=== PATIENT | female | born 1970 | race Caucasian/White ===

== ENCOUNTER → 2016-09-10 | Outpatient (REF) | payer BC, MEDICARE ==
[2016-09-10 18:43] LABS: PERCENT SATURATION 24.3 % (13.2-37.4)
[2016-09-11 11:22] LABS: PRETREATED FOLATE FOR RBCFOL 12.4 NG/ML
== END ==
LOC: M LAB REF 16:27
PROVIDERS: ATTEND Nurse Practitioner Adult Health
DX: Z98.84 Bariatric surgery status (principal)

== ENCOUNTER → 2016-10-28 | Outpatient (REF) | payer BC, MEDICARE ==
[2016-10-28 18:13] LABS: AMYLASE 33 U/L (25-115)
== END ==
LOC: M LAB REF 16:28
PROVIDERS: ATTEND Nurse Practitioner Adult Health
DX: R10.9 Unspecified abdominal pain (principal)

== ENCOUNTER → 2016-10-29 | Outpatient (REF) | payer BC, MEDICARE | LOC: M LAB REF 13:00 | PROVIDERS: ATTEND Nurse Practitioner Adult Health | DX: R10.9 Unspecified abdominal pain (principal) ==

== ENCOUNTER 2016-11-21 21:58 | Observation (INO) | payer BC, MEDICARE ==
[~2016-11-21] VITALS: Ht 167.6 cm; Wt 131.1 kg
[2016-11-21] MEDS: busPIRone 10 MG TAB PO SCH (21:00)
[2016-11-21] MEDS: DYAZIDE 37.5/25 CAP (TRIAM/HCTZ) PO SCH (21:00)
[2016-11-21] MEDS: MULTIVITAMINS/MINERALS THERAP 1 TAB PO SCH (21:00)
[2016-11-21] MEDS: SERTRALINE 100 MG TAB PO SCH (21:00)
[2016-11-21] MEDS: FERROUS SULFATE 325MG TAB PO SCH (21:00)
[2016-11-21] MEDS ORDERED: OMEP20CA3 PO (22:13)
[2016-11-21] MEDS ORDERED: LEVO200T4 PO (22:13)
[2016-11-21] MEDS ORDERED: BUSP30TA PO (22:13)
[2016-11-21] MEDS ORDERED: MONOESSA PO (22:13)
[2016-11-21] MEDS ORDERED: MULT1TAB10 PO (22:13)
[2016-11-21] MEDS ORDERED: TRIA37.53 PO (22:13)
[2016-11-21] MEDS ORDERED: VYVA70CA3 PO (22:13)
[2016-11-21] MEDS ORDERED: ZOLO100T PO (22:13)
[2016-11-21] MEDS ORDERED: IRON1TAB PO (22:13)
[2016-11-21] MEDS: MORPHINE 4 MG/ML 1ML SYRINGE IV PRN (22:57)
[2016-11-21] MEDS ORDERED: ONDANSETRON 4MG/2ML VIAL (J2405) IV ONE (23:00)
[2016-11-21] MEDS ORDERED: NS 1,000 ML IV ONE (23:00)
[2016-11-22] MEDS: MORPHINE 4 MG/ML 1ML SYRINGE IV PRN (00:15)
--- NOTE | 2016-11-22 00:40 | REPUSA ---
CT of the abdomen and pelvis without contrast Clinical statement: Pain. Technique: Multiple axial CT images were obtained from the base of the lungs to the floor of the pelv is utilizing 5 mm axial slices without administration of contrast. Coronal and sagittal reconstructio ns were also obtained. No comparison is available. Findings: Chest: The visualized lung bases are clear. Abdomen: The kidneys are normal in size bilaterally. There is no evidence of hydronephrosis or nephro lithiasis. The liver, spleen, pancreas, gallbladder and adrenal glands are unremarkable. The aorta de monstrates normal caliber and contour. There is no abdominal lymphadenopathy or ascites. Surgical bronwyn nges from gastric bypass are noted. There is a small umbilical hernia containing only omental fat. Pelvis: The bowel is unremarkable, with no obstructive or inflammatory changes. The urinary bladder i s within normal limits. There is no pelvic lymphadenopathy or ascites. The other pelvic structures ap pear unremarkable. Bones: There are no suspicious osseous abnormalities seen. Impression: 1. No focal abnormality to explain the patient's pain. 2. No evidence of hydronephrosis or nephrolithiasis. 3. No obstructive or inflammatory bowel changes. 4. Small umbilical hernia containing only omental fat.
[2016-11-22] MEDS ORDERED: DICYCLOMINE INJ 20MG/2ML (J0500) IM ONE (01:15)
[2016-11-22] MEDS ORDERED: ACETAMINOPHEN TAB 650MG DOSE (2X325MG) PO PRN (04:00)
[2016-11-22] MEDS ORDERED: VYVA50CA PO (04:04)
[2016-11-22] MEDS ORDERED: MONOTAB PO (04:04)
[2016-11-22] MEDS ORDERED: IRON65TA PO (04:06)
[2016-11-22] MEDS ORDERED: PERCOCET 5MG/325MG TAB PO PRN (04:15)
[2016-11-22 06:00] VITALS: BP 152/80
[2016-11-22] MEDS: HEPARIN SOD (PORCINE) 5000 UNITS/ML VIAL SC SCH ×3 (06:00→21:45)
[2016-11-22] MEDS: LEVOTHYROXINE 0.1 MG TAB (100 MCG) PO SCH (06:30)
--- NOTE | 2016-11-22 06:59 | HPE ---
DATE OF ADMISSION: 11/22/2016 PRIMARY CARE PROVIDER: Jennifer Ferreira NP PSYCHIATRIST: Dr. Clark in [place]. CHIEF COMPLAINT: Left upper abdominal pain. HISTORY OF PRESENT ILLNESS: The patient is a 46-year-old female with a past medical history significant for panic attacks, anxiety/depression, hypertension, morbid obesity, who presented to [facility] on 11/22/2016 for persistent left upper abdominal pain. The patient stated that around 3:00 p.m. on 11/21/2016, she was carrying groceries home and in the process she started having sharp, throbbing left upper abdominal pain and the patient radiated to the back and the right side of the upper abdomen. position makes the pain better, standing or upper body extension makes it worse. Other significant history includes the patient having increased fatigue and the patient was noted to have two days of diarrhea which resolved approximately three days. The patient had almost exactly the same episode approximately a few weeks ago and the pain subsided within a few days without any intervention. Before the last episode, the patient had infrequent upper abdominal pain, but that pain resolved after the patient's gastric bypass surgery. The patient denies any recent dietary changes. Denies any new medication changes. Denies any recent trauma. Patient any exertion more than usual. ALLERGIES: No known drug allergies. PAST MEDICAL HISTORY: Panic attacks. Anxiety/depression. Hypothyroidism. Morbid obesity. PAST SURGICAL HISTORY: Gastric bypass three years ago. Uterine ablation for excessive blood loss. Knee surgery times two for meniscus tear. Right knee surgery times one. Right ankle surgery times one. Right shoulder surgery times one. Right hand carpal tunnel surgery times two. HOME MEDICATIONS: - BuSpar 30 mg by mouth at bedtime - triamterene/hydrochlorothiazide 37.5/25 one tablet by mouth at bedtime - iron 325 mg by mouth at bedtime - levothyroxine 200 mcg by mouth daily - Mononessa 0.25-35 mcg one tablet by mouth daily - sertraline 100 mg by mouth at bedtime - Vyvanse 15 mg by mouth daily SOCIAL HISTORY: Denies smoking. Drinks mixed drinks occasionally. Denies recreational drug use. The patient is a FULL CODE. REVIEW OF SYSTEMS: GENERAL: No fever. No chills. HEENT: No vision changes. No auditory changes. CARDIOVASCULAR: Denies any chest pain or palpitations. RESPIRATORY: Denies any shortness of breath or wheezes. GASTROINTESTINAL (GI): Left upper abdominal pain, sharp, persistent, radiates to the posterior back and right upper abdomen. Started 12 hours ago. The patient dd have two days of diarrhea which resolved four days ago. 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 Her elbow and the left did not grow as proportionately as the rest of the body. NEUROLOGICAL: Denies any numbness or tingling. OBJECTIVE: VITAL SIGNS: Temperature 95.9, pulse is 70, blood pressure 124/59, pulse oximetry 98% in room air. GENERAL: Mild to moderate distress secondary to left upper abdominal pain. The patient is alert and oriented times three. HEENT: Normocephalic, atraumatic. Extraocular motors grossly intact. CARDIOVASCULAR: Positive systolic murmur best heard at the sternal borders. Positive S1 and S2, regular rate. LUNGS: Clear to auscultation bilaterally. No wheezes or rhonchi. ABDOMEN: Vague tenderness to palpation just below the left frontal rib. With palpation, the pain will radiate to the posterior back. Otherwise, the abdomen is soft and bowel sounds are present. No rebound. No guarding. MUSCULOSKELETAL: There is point tenderness in her left posterior back, right near the left lower rib region. With direct pressure the tenderness can be reproduced with radiation to the left frontal rib. No lower extremity edema. No signs of cyanosis. NEUROLOGICAL: Sensation to fine touch grossly intact. Muscle strength 5/5. IMAGING STUDIES: CT of the abdomen and pelvis without contrast showed no focal abnormalities. No evidence of hydronephrosis or nephrolithiasis. No obstructive inflammatory bowel changes. Small umbilical hernia containing only omental fat. ASSESSMENT/PLAN: 1. Left upper abdominal pain. The patient will be admitted to the medical/surgical floor under inpatient status. CT scan of the abdomen and pelvis ruled out any abnormality of her spleen, colon or the kidneys. The patient's pain is actually reproducible with direct palpable, which makes the diagnosis lean toward musculoskeletal pain. The patient states she does tend to carry heavy material toward her left side, but she is not sure if that causes significant muscle strains or stress to her body. The patient is not on pain medication currently, will start a trial of muscle relaxant. Will look for other possible sources of her left upper abdominal pain. 2. Hypertension. Continue home medications. 3. History of gastric bypass. The patient is taking iron supplements. We will check the electrolytes. 4. Anxiety/depression. Continue Zoloft. 5. History of panic attacks. Continue home medications. Will continue to monitor. 6. Gastroesophageal reflux disease (GERD). Patient will be on Protonix. 7. Deep vein thrombosis (DVT) prophylaxis. The patient will be on heparin.
[2016-11-22] MEDS: PANTOPRAZOLE 40MG TAB (PROTONIX) PO SCH (09:52)
[2016-11-22] MEDS: BACLOFEN 10 MG TAB PO SCH ×3 (09:52→21:46)
--- NOTE | 2016-11-22 09:59 | REP ---
Clinical: Left upper quadrant pain. Technique: Real time banegas scale ultrasound examination using curved array transducer. Findings: The spleen is mildly enlarged, but normal in contour and echogenicity without focal splenic lesion identified. Spleen measures 11.8 x 11.7 x 5.1 cm. The left kidney is normal in reniform shape without hydronephrosis, nephrolithiasis, cystic or mass lesion and measures 12.3 x 5.3 x 5.2 cm. No ascites in the left upper quadrant. Impression: The spleen is minimally enlarged without focal abnormality. Normal left kidney. Signed by Jonathan Webber MD 11/22/2016 09:51 A
[2016-11-22] MEDS: KETOROLAC TROMETHAMINE 10 MG TAB PO PRN ×2 (11:43→21:48)
[2016-11-22 14:00] VITALS: BP 120/65
[2016-11-22] MEDS: SERTRALINE 100 MG TAB PO SCH (21:46)
[2016-11-22] MEDS: FERROUS SULFATE 325MG TAB PO SCH (21:46)
[2016-11-22] MEDS: MULTIVITAMINS/MINERALS THERAP 1 TAB PO SCH (21:46)
[2016-11-22] MEDS: DYAZIDE 37.5/25 CAP (TRIAM/HCTZ) PO SCH (21:46)
[2016-11-22] MEDS: busPIRone 10 MG TAB PO SCH (21:46)
[2016-11-22 22:00] VITALS: BP 120/76
[2016-11-23 06:00] VITALS: BP 138/76
[2016-11-23] MEDS: HEPARIN SOD (PORCINE) 5000 UNITS/ML VIAL SC SCH (06:04)
[2016-11-23] MEDS: LEVOTHYROXINE 0.1 MG TAB (100 MCG) PO SCH (06:05)
[2016-11-23] MEDS ORDERED: KETO10TAB PO (08:39)
[2016-11-23] MEDS: PANTOPRAZOLE 40MG TAB (PROTONIX) PO SCH (09:32)
[2016-11-23] MEDS: BACLOFEN 10 MG TAB PO SCH (09:32)
--- NOTE | 2016-11-23 09:43 | IPNPDOC ---
Subjective Date Seen The patient was seen on 11/23/16. Subjective Chief Complaint/HPI The patient is a 46-year-old female admitted with a reason for visit of Left Upper Quad Abd Tenderness. General: Denies: Chills, Fatigue, Malaise Constitutional: Denies: Chills, Lethargy, Night Sweats Eyes: Denies: Conjunctivae inflammation, Eyelid inflammation, Pain, Vision change ENT: Denies: Head Aches Skin: Denies: Bruising, Rash Pulmonary: Denies: Cough, Dyspnea Cardiovascular: Reports: Chest Pain (pt states the CP is a 2 on a scale of 1 to 10, describes achy pain under left 10th rib ) Gastrointestinal: Denies: Constipation, Diarrhea, Nausea, Vomiting Genitourinary: Denies: Dysuria Musculoskeletal: Denies: Neck Pain Neurological: Denies: Numbness, Weakness Psych: Reports: Mood Normal, Denies: Anxiety, Depression Objective Physical Examination General Exam: Positive: Alert, Cooperative, No Acute Distress Eye Exam: Positive: Conjunctiva & lids normal, EOMI, Negative: Ptosis, Sclera icteric ENT Exam: Positive: Mucous membr. moist/pink, Nares Patent, Pharynx Normal, Tongue Midline Neck Exam: Positive: Supple Chest Exam: Positive: Clear to auscultation, Normal air movement, Negative: Rales, Rhonchi, Wheezing Heart Exam: Positive: Normal S1, Normal S2, Rate Normal, Regular Rhythm, Negative: Bradycardic, Tachycardic Abdomen Exam: Positive: Normal bowel sounds, Soft, Tenderness (tender to palpitation in LUQ), Negative: Hepatospenomegaly Extremity Exam: Negative: Clubbing, Cyanosis, Edema Skin Exam: Positive: Nl turgor and temperature, Negative: Breakdown, Rash Psych Exam: Positive: Memory Intact, Mental status NL, Negative: Anxiety Assessment /Plan Problems (1) Left upper quadrant abdominal tenderness Status: Acute Problem Text: Abdominal/pelvic CT and abdominal u/s without pathologic findings , minimal amount of splenomegaly likely pain in LUQ is 2/2 msk. origin pt. states her pain is tolerable on current pain medication and is significantly decreased since admission, currently maintained on toradol. (2) Hypothyroid Status: Acute Problem Text: continue levothyroxine treatment (3) Depression Status: Acute Problem Text: pt currently on medical management for depression (4) DVT prophylaxis Status: Acute Problem Text: heparin (5) Hypertension Status: Chronic Response to Treatment: Stable Problem Text: medically managed controlled 138/76 (6) Anxiety Status: Chronic Response to Treatment: Stable Problem Text: will continue current medical therapy controlled (7) Chronic GERD Status: Chronic Response to Treatment: Stable Problem Text: protonix therapy Plan/VTE VTE Prophylaxis Ordered?: No VS, I&O, 24H, Fishbone Vital Signs/I&O Vital Signs Date Time Temp Pulse Resp B/P Pulse Ox O2 Delivery O2 Flow Rate FiO2 11/23/16 06:00 98.8 70 14 138/76 96 Room Air I&O- Last 24 Hours up to 6 AM 11/23/16 06:00 Intake Total 1500 ml Output Total 550 ml Balance 950 ml Laboratory Data 24H LABS Laboratory Tests 2 11/23/16 06:27: Blood Urea Nitrogen 11, Creatinine 0.70, Sodium Level 140, Potassium Level 4.2, Chloride Level 106, Carbon Dioxide Level 26, Calcium Level 8.0L, Aspartate Amino Transf (AST/SGOT) 7L, Alanine Aminotransferase (ALT/SGPT) 13, Alkaline Phosphatase 65, Total Bilirubin 0.4, Total Protein 6.2L, Albumin 2.9L, Albumin/ Globulin Ratio 0.88L, Anion Gap 8, Glomerular Filtration Rate > 60.0 CBC/BMP Laboratory Tests 11/23/16 06:27 Calcium Level 8.0 L, Aspartate Amino Transf (AST/SGOT) 7 L, Alanine Aminotransferase (ALT/SGPT) 13, Alkaline Phosphatase 65, Total Bilirubin 0.4, Total Protein 6.2 L, Albumin 2.9 L, Red Blood Count 3.86 L, Mean Corpuscular Volume 89.6, Mean Corpuscular Hemoglobin 30.2, Mean Corpuscular Hemoglobin Concent 33.7, Red Cell Distribution Width 12.1 Microbiology Microbiology 11/21/16 Urine Culture - Final, Complete GME ATTESTATION GME ATTESTATION My preceptor for this patient encounter was physically present in the building during the encounter and was fully available. As needed, all aspects of the patient interview, examination, medical decision making process, and medical care plan development were reviewed and approved by the preceptor. Preceptor is aware and concurs with the plan as stated in the body of this note and will attest to such by his/her cosignature. MARYELLEN ARZATE DO, Apr 3, 2017 09:42
--- NOTE | 2016-11-23 13:01 | DS.PDOC ---
Discharge Summary General Date of Admission Nov 22, 2016 at 04:02 Date of Discharge 10-23-16 Primary Care Physician: Jennifer Ferreira Discharge Summary PROCEDURES PERFORMED DURING STAY: [None]. ADMITTING DIAGNOSES: 1. Left upper abdominal pain 2. HTN 3. anxiety/depression 4. history of gastric bypass 5. history of panic attacks 6. GERD DISCHARGE DIAGNOSES: 1. Left upper abdominal pain 2/2 musculoskeletal origin due to prosthetic use 2. HTN 3. History of anxiety/depression and panic attacks 4.GERD COMPLICATIONS/CHIEF COMPLAINT: Left Upper Quad Abd Tenderness. HISTORY OF PRESENT ILLNESS: Ms Koch is a 46 y/o female who presented to the ED on 11-21-16 after experiencing acute left upper abdominal pain that had persisted for the preceding two days before admission, she stated that the pain began when she was carrying groceries home and felt an acute, sharp and throbbing left upper abdominal pain that radiated to the back and right side of her upper abdomen. HOSPITAL COURSE: During her hospital stay her pain has been managed and on day of discharge she reports that the left upper abdominal pain is much improved since she initially presented to our ED and states that the toradol is helping her very much. Her abdominal/pelvic CT and abdominal U/S was negative except for minimal splenomegaly and did not suggest a cause for her acute pain. The patient wears a prosthetic device and it is likely that her pain is due from poor position and handling of the device and is musculoskeletal in origin. On day of discharge she was seen and cleared by PT to return home. She was educated on proper use of her prosthetic device to avoid extraneous pressure on her body that may flare up another episode of her pain. DISCHARGE MEDICATIONS: Please see below. ALLERGIES: Please see below. PHYSICAL EXAMINATION ON DISCHARGE: VITAL SIGNS: Please see below. GENERAL: AAOx3, pleasant, sitting upright in bed and conversant HEENT: NCAT, EOMI, neck supple, nares patent b/l NECK: supple, no masses appreciated CARDIOVASCULAR EXAMINATION: RRR, no murmurs or gallops or rubs appreciated, normal s1 and s2. NSR RESPIRATORY EXAMINATION: CTA b/l, no wheezing, rhonchi or rales appreciated ABDOMINAL EXAMINATION: obese, soft, mild minimal pain to palpitation in LUQ much improved from admission as per patient, no organomegaly, NABSx4, non- distended EXTREMITIES: no cyanosis or edema appreciated SKIN: intact, good turgor NEUROLOGICAL EXAMINATION: no focal deficits PSYCHIATRIC EXAMINATION: normal affect, appropriate mood LABORATORY DATA: Please see below. IMAGING: Ab/pelvic CT w/o contrast 11-22-16 Impression: 1. No focal abnormality to explain the patient's pain. 2. No evidence of hydronephrosis or nephrolithiasis. 3. No obstructive or inflammatory bowel changes. 4. Small umbilical hernia containing only omental fat. Abdomen u/s 11-22-16 The spleen is minimally enlarged without focal abnormality. Normal left kidney. PROGNOSIS: Favorable ACTIVITY: As tolerated. DIET: As tolerated DISCHARGE PLAN: to home DISPOSITION: discharge to home DISCHARGE INSTRUCTIONS: 1. follow up outpt. with PCP in one week ITEMS TO FOLLOWUP ON ON OUTPATIENT: 1. Follow with your PCP within one week of DC DISCHARGE CONDITION: [Stable]. TIME SPENT ON DISCHARGE: Greater than 20 minutes. Vital Signs/I&Os Vital Signs Date Time Temp Pulse Resp B/P Pulse Ox O2 Delivery O2 Flow Rate FiO2 11/23/16 06:00 98.8 70 14 138/76 96 Room Air I&O- Last 24 Hours up to 6 AM 11/23/16 06:00 Intake Total 1500 ml Output Total 550 ml Balance 950 ml Laboratory Data Labs 24H Laboratory Tests 2 11/23/16 06:27: Blood Urea Nitrogen 11, Creatinine 0.70, Sodium Level 140, Potassium Level 4.2, Chloride Level 106, Carbon Dioxide Level 26, Calcium Level 8.0L, Aspartate Amino Transf (AST/SGOT) 7L, Alanine Aminotransferase (ALT/SGPT) 13, Alkaline Phosphatase 65, Total Bilirubin 0.4, Total Protein 6.2L, Albumin 2.9L, Albumin/ Globulin Ratio 0.88L, Anion Gap 8, Glomerular Filtration Rate > 60.0 CBC/BMP Laboratory Tests 11/23/16 06:27 Calcium Level 8.0 L, Aspartate Amino Transf (AST/SGOT) 7 L, Alanine Aminotransferase (ALT/SGPT) 13, Alkaline Phosphatase 65, Total Bilirubin 0.4, Total Protein 6.2 L, Albumin 2.9 L, Red Blood Count 3.86 L, Mean Corpuscular Volume 89.6, Mean Corpuscular Hemoglobin 30.2, Mean Corpuscular Hemoglobin Concent 33.7, Red Cell Distribution Width 12.1 Microbiology Microbiology 11/21/16 Urine Culture - Final, Complete Discharge Medications Scheduled (Vyvanse) 50 Mg Cap 50 MG PO DAILY (Reported) @ 1200 (Mononessa 0.25-35 mg-Mcg) 1 Tab Tab 1 TAB PO DAILY (Reported) (Iron) 325 Mg Tab 325 MG PO QHS (Reported) Buspirone HCl (Buspirone HCl) 30 Mg Tab 30 MG PO QHS (Reported) Hydrochlorothiazide W/Triamter (Triamterene/Hydrochloroth 37.5-25 mg) 1 Cap Cap 1 CAP PO QHS (Reported) Levothyroxine Sodium (Synthroid) 200 Mcg Tab 200 MCG PO DAILY (Reported) Multivitamins (Multivitamin Adults) 1 Tab Tab 1 TAB PO QHS (Reported) Omeprazole (Omeprazole) 20 Mg Cap 20 MG PO QHS (Reported) Sertraline Hcl (Zoloft) 100 Mg Tab 100 MG PO QHS (Reported) Scheduled PRN Ketorolac Tromethamine (Ketorolac Tromethamine) 10 Mg Tab 10 MG PO Q6HP PRN PRN PAIN Allergies Coded Allergies: Coconut (Verified Allergy, Unknown, 11/21/16) MINT (Verified Allergy, Unknown, 11/21/16) GME ATTESTATION GME ATTESTATION My preceptor for this patient encounter was physically present in the building during the encounter and was fully available. As needed, all aspects of the patient interview, examination, medical decision making process, and medical care plan development were reviewed and approved by the preceptor. Preceptor is aware and concurs with the plan as stated in the body of this note and will attest to such by his/her cosignature. MARYELLEN ARZATE DO Nov 23, 2016 13:01
== END 2016-11-23 13:15 | disposition home or self-care (01) ==
LOC: M ED 21:58 → M MS5PR 21:59 → M ED 11-22 00:11 → M MS5PR 11-22 03:57 → UNDOADMOB 11-22 03:57 → M ED INP 11-22 04:02 → M ED 11-22 04:50 → M MS5PR 11-22 05:46 → M ED INP 11-22 05:46 → UNDODISOB 11-23 13:15
PROVIDERS: ADMIT Internal Medicine; ATTEND Internal Medicine
DX: R10.12 Left upper quadrant pain (principal); I10 Essential (primary) hypertension; F41.9 Anxiety disorder, unspecified; F32.9 Major depressive disorder, single episode, unspecified; Z98.84 Bariatric surgery status; K21.9 Gastro-esophageal reflux disease without esophagitis; Z79.899 Other long term (current) drug therapy; E66.01 Morbid (severe) obesity due to excess calories; E03.9 Hypothyroidism, unspecified
CPT/HCPCS: 36415; 74176; 76705; 80048; 80053; 80076; 81001; 82550; 82607; 83690; 84439; 84443; 85025; 85027; 86140; 86308; 87086; 93041; 96372; 97161; 99285; J0500; J2405

== ENCOUNTER → 2017-01-28 | Outpatient (CLI) | payer BC, MEDICARE ==
[~2017-01-28] MED LIST: BUSP30TA PO; IRON1TAB PO; IRON65TA PO; KETO10TAB PO; LEVO200T4 PO; MONOESSA PO; MONOTAB PO; MULT1TAB10 PO; OMEP20CA3 PO; TRIA37.53 PO; VYVA50CA PO; VYVA70CA3 PO; ZOLO100T PO
--- NOTE | 2017-01-28 13:54 | REPMRS ---
Patient History The patient states she had a clinical breast exam in December 2016. Taking hormonal contraceptives for 3 years beginning at age 42. Digital Mammo Screening Bilat: January 28, 2017 - Exam #: [id number] Bilateral CC and MLO view(s) were taken. Technologist: Winifred Kahn, Technologist Prior study comparison: January 07, 2016, digital woman screen mammo, performed at [facility]. February 27, 2013, bilateral digital mammo screening bilat performed at [facility]. February 16, 2012, bilateral digital mammo screening bilat performed at [facility]. FINDINGS: There are scattered fibroglandular densities. There has been no change in the appearance of the mammogram from the prior studies. There is a mild amount of scattered fibroglandular density which is fairly symmetric. There is no interval development of dominant mass, architectural distortion, or clustered microcalcification suggestive of malignancy. ASSESSMENT: BI-RADS/ACR category 1 mammogram. Negative. Recommendation Routine screening mammogram in 1 year (for women over age 40). This mammogram was interpreted with the aid of an FDA-approved computer-aided dectection system. Electronically Signed By: Jerman Spangler MD 01/28/17 [id number]
== END ==
LOC: M RAD 11:44
PROVIDERS: ATTEND Nurse Practitioner Women's Health
DX: Z12.31 Encounter for screening mammogram for malignant neoplasm of breast (principal)

== ENCOUNTER → 2017-02-08 | Outpatient (CLI) | payer BC, MEDICARE ==
[~2017-02-08] MED LIST changes: -VYVA50CA PO; +VYVA50CA4 PO
[2017-02-08 12:57] LABS: BASO % 0.4 % (0.0-1.0); EOS # 0.1 K/mm3 (0.0-0.50); EOS % 0.6 % (0.0-3.0); LARGE UNSTAINED CELL # 0.1 K/mm3 (0.0-0.4); LARGE UNSTAINED CELL % 0.9 % (0.0-4.0); LYMPH # 1.1 K/mm3 (1.5-4.5); LYMPH % 10.1 % (24.0-44.0); MEAN CORPUSCULAR HEMOGLOBIN 30.3 pg (27.0-33.0); MEAN CORPUSCULAR HGB CONC 34.3 g/dl (32.0-36.5); MEAN CORPUSCULAR VOLUME 88.2 fl (80.0-96.0); MONO # 0.4 K/mm3 (0.0-0.8); MONO % 3.9 % (0.0-5.0); NEUTROPHILS # 8.1 K/mm3 (1.8-7.7); NEUTROPHILS % 84.2 % (36.0-66.0); PLATELET COUNT, AUTOMATED 379 k/mm3 (150-450); RED CELL DISTRIBUTION WIDTH 12.8 % (11.5-14.5); WHITE BLOOD COUNT 9.6 K/mm3 (4.0-10.0)
== END ==
LOC: M LAB 11:56
PROVIDERS: ATTEND Physician Assistant
DX: Z48.815 Encounter for surgical aftercare following surgery on the digestive system (principal); K21.9 Gastro-esophageal reflux disease without esophagitis; Z98.0 Intestinal bypass and anastomosis status; I10 Essential (primary) hypertension

== ENCOUNTER → 2018-01-31 | Outpatient (REF) | payer BC, MEDICARE ==
[2018-01-31 18:32] LABS: IRON (FE) 113 UG/DL (50-170)
== END ==
LOC: M LAB REF 17:55
DX: D50.9 Iron deficiency anemia, unspecified (principal)
CPT/HCPCS: 83540

== ENCOUNTER 2019-09-09 11:36 | Emergency (ER) | payer BC, MEDICARE ==
[~2019-09-09] VITALS: Ht 165.1 cm; Wt 151.0 kg
[~2019-09-09 11:36] MED LIST changes: +OMEP1CAP73 PO; -OMEP20CA3 PO
[2019-09-09 11:37] VITALS: BP 148/81
[2019-09-09] MEDS ORDERED: ESTA0.25 PO (12:08)
--- NOTE | 2019-09-09 12:29 | REP ---
Left knee: Five views. History: Left knee pain. Findings: Five views of the left knee are compared with October 14 1007 prior radiographs. There is mild three compartment osteoarthritis more pronounced than on the 2008 study. Mild joint space narrowing is suspected laterally. There is a fullness in the suprapatellar bursa on the lateral radiograph suggesting joint effusion. No fractures seen. Impression: Three compartment osteoarthritis with evidence of joint effusion. No acute bony abnormality. Electronically Signed by Laurent Spangler MD 09/09/2019 12:21 P
== END 2019-09-09 12:35 | disposition home or self-care (01) ==
LOC: M ED 11:36
DX: M25.562 Pain in left knee (principal); Z91.018 Allergy to other foods; Z79.899 Other long term (current) drug therapy; Z79.3 Long term (current) use of hormonal contraceptives

== ENCOUNTER → 2020-04-03 | Outpatient (CLI) | payer BC, MEDICARE ==
[~2020-04-03] MED LIST changes: +ESTA0.25 PO
[2020-05-18 10:56] LABS: FOLLICLE STIMULATING HORMONE 15.4 mIU/mL; LUTEINIZING HORMONE 9.6 mIU/mL
== END ==
LOC: M LAB 11:50
PROVIDERS: ATTEND Obstetrics & Gynecology
DX: N91.4 Secondary oligomenorrhea (principal)

== ENCOUNTER → 2020-04-03 | Outpatient (CLI) | payer BC, MEDICARE ==
--- NOTE | 2020-04-22 16:21 | REPMRS ---
Patient History The patient states she had a clinical breast exam in 03/2020. Taking hormonal contraceptives for 3 years beginning at age 42. 3D TOMOSYNTHESIS WAS PERFORMED. The Rebecca Lauern lifetime risk for breast cancer is 10.0%. VOLPARA DENSITY B. THIS REPORT IS DELAYED DUE TO CATASTROPHIC COMPUTER SYSTEM FAILURE AT [facility]. Digital Woman Screen Mammo: April 03, 2020 - Exam #: [id number] Bilateral CC and MLO view(s) were taken. Technologist: Tanya Nixon, Technologist Prior study comparison: January 28, 2017, bilateral digital mammo screening bilat, performed at [facility]. January 07, 2016, digital woman screen mammo performed at [facility]. FINDINGS: There are scattered fibroglandular densities. There has been no change in the appearance of the mammogram from the prior studies. There is a mild amount of residual fibroglandular tissue which is fairly symmetric. There is no interval development of dominant mass, architectural distortion, or clustered microcalcification suggestive of malignancy. Assessment: BI-RADS/ACR category 1 mammogram. Negative Mammogram. Recommendation Routine screening mammogram in 1 year (for women over age 40). This mammogram was interpreted with the aid of an FDA-approved computer-aided dectection system. Electronically Signed By: Walker Metzger MD 04/22/20 [id number]
== END ==
LOC: M WHC 07:02
PROVIDERS: ATTEND Obstetrics & Gynecology
DX: Z12.31 Encounter for screening mammogram for malignant neoplasm of breast (principal); Z79.3 Long term (current) use of hormonal contraceptives

== ENCOUNTER → 2020-09-03 | Outpatient (CLI) | payer SELFPAY | LOC: M LABSMTC 10:00 | PROVIDERS: ATTEND Pediatrics | DX: Z20.828 Contact with and (suspected) exposure to other viral communicable diseases (principal) ==

== ENCOUNTER → 2020-12-31 | Outpatient (REF) ==
--- NOTE | 2020-12-31 09:20 | REP ---
INDICATION: DDD COMPARISON: 10/14/2007 TECHNIQUE: AP, lateral, bilateral oblique and sunrise views. FINDINGS: Moderate tricompartmental osteoarthritic degenerative changes are now appreciated including increased sclerosis along the tibial plateau and posterior patellar margin with small osteophyte formation along the medial and lateral compartments and lateral joint space narrowing. No acute fracture or dislocation. No obvious effusion. IMPRESSION: Moderate tricompartmental osteoarthritic changes. <Electronically signed by Jonathan Webber > 12/31/20 [id number]
== END ==
LOC: M RAD 09:00
PROVIDERS: ATTEND Internal Medicine
DX: Z02.71 Encounter for disability determination (principal); M17.12 Unilateral primary osteoarthritis, left knee

== ENCOUNTER → 2021-05-26 | Outpatient (CLI) | payer BC, MEDICARE ==
--- NOTE | 2021-05-27 17:14 | REPVR ---
PROCEDURE INFORMATION: Exam: MR Cervical Spine Without Contrast Exam date and time: 05/26/2021 11:59 AM Age: 51 years old Clinical indication: Neck pain; Additional info: Spinal stenosis TECHNIQUE: Imaging protocol: Multiplanar magnetic resonance images of the cervical spine without contrast. COMPARISON: MRI-Spine,Thoracic without con 05/26/2021 10:27 AM FINDINGS: Vertebrae: Normal alignment. Mild endplate degenerative changes at C5-C6. Otherwise normal marrow signal. Mild facet DJD Spinal cord: Normal signal. No cord compression. No syrinx or mass. C2-C3: No disc herniation or spinal stenosis. No significant foraminal stenosis. C3-C4: Right paracentral disc bulge causes mild central spinal stenosis. No cord compression. Mild foraminal stenosis. C4-C5: Intervertebral disc degeneration with large broad-based posterior disc protrusion eccentric to the right measuring approximately 8 x 4 x 8 mm. Central spinal stenosis with mild mass effect on the cord surface on the right. No cord compression or signal changes. Severe right foraminal stenosis. Moderate left foraminal stenosis. C5-C6: Large broad-based posterior disc protrusion and disc osteophyte complex causes moderate central spinal canal stenosis with mass effect on the cord. Possible 6 mm right foraminal disc herniation (image 12, series 701). Severe foraminal stenosis, worse on the right. C6-C7: Eccentric right lateral disc protrusion measuring 7 mm causing right foraminal stenosis. No spinal stenosis or cord compression. C7-T1: No disc herniation or spinal stenosis. No significant foraminal stenosis. Soft tissues: Unremarkable. Vertebral arteries: Expected flow voids in the vertebral arteries. IMPRESSION: 1. Disc degeneration with broad-based disc bulges and right paracentral disc protrusions from C3-C4 to C5-C6 causing multilevel spinal stenosis, worst at C5-C6. Eccentric right lateral disc bulge at C6-C7. No cord compression or signal changes. 2. Small right foraminal disc herniation at C5-C6. 3. Multilevel moderate to severe foraminal stenosis. Electronically signed by: Bob Limon On 05/27/2021 17:14:12 PM
--- NOTE | 2021-05-27 18:08 | REPVR ---
PROCEDURE INFORMATION: Exam: MR Thoracic Spine Without Contrast Exam date and time: 05/26/2021 11:59 AM Age: 51 years old Clinical indication: Pain in thoracic spine; Additional info: Spinal stenosis TECHNIQUE: Imaging protocol: Multiplanar magnetic resonance images of the thoracic spine without contrast. COMPARISON: CT ABD PELVIS W/O CONTRAST 11/21/2016 11:53 PM FINDINGS: Vertebrae: Unremarkable. Normal alignment. Normal marrow signal. Spinal cord: Normal signal. No cord compression. No syrinx or mass. Discs/Spinal canal/Neural foramina: 8 x 4 mm midline/left paracentral disc protrusion at T8-9 causing mild central spinal stenosis and mild mass effect on the ventral cord surface. 5 mm left paracentral disc protrusion at T7-8 without significant spinal stenosis. Minor midline posterior disc bulging from T3-4 to T6-7 without spinal stenosis. Soft tissues: Unremarkable. IMPRESSION: 1. Small midline/left paracentral disc protrusion at T8-9 causing mild spinal stenosis. 5 mm left paracentral disc protrusion at T7-8. No cord compression or cord signal changes. 2. Minor posterior disc bulging from T3-4 to T6-7 without spinal stenosis. Electronically signed by: Bob Limon On 05/27/2021 18:08:18 PM
== END ==
LOC: M PLAIMG 10:21
PROVIDERS: ATTEND Orthopaedic Surgery
DX: M48.02 Spinal stenosis, cervical region (principal); M47.814 Spondylosis without myelopathy or radiculopathy, thoracic region; M48.04 Spinal stenosis, thoracic region; M51.24 Other intervertebral disc displacement, thoracic region

== ENCOUNTER → 2021-06-11 | Outpatient (REF) | payer BC, MEDICARE ==
[2021-06-11 17:15] LABS: C REACTIVE PROTEIN QUANTITATIV 2.85 MG/DL (0.00-0.30); RHEUMATOID FACTOR QUANT < 10.0 IU/ML (<15.0)
[2021-06-11 17:34] LABS: HEPATITIS B SURFACE ANTIGEN NEGATIVE (NEGATIVE)
[2021-06-11 18:03] LABS: HEPATITIS B CORE ANTIBODY IGM NEGATIVE (NEGATIVE)
[2021-06-13 23:07] LABS: ANTINUCLEAR ANTIBODIES DIRECT Negative (Negative); CYCLIC CITRULLINATED PEPTIDE 6 units (0-19); HERPES ZOSTER, VARICELLA IgG 1421 index (Immune >165); Lyme Disease IgG/IgM Antibodie <0.91 ISR (0.00-0.90); Lyme Disease IgM Ab Quantitati <0.80 index (0.00-0.79)
== END ==
LOC: M LAB REF 16:10
PROVIDERS: ATTEND Nurse Practitioner Adult Health
DX: M35.3 Polymyalgia rheumatica (principal)

== ENCOUNTER → 2021-06-23 | Outpatient (CLI) | payer BC, MEDICARE ==
--- NOTE | 2021-06-23 09:15 | REPMRS ---
Patient History No known family history of cancer. Taking hormonal contraceptives for 15 years. Patient states no breast complaints today. Patient has signed MRS History Sheet. Digital Woman Screen Mammo: June 23, 2021 - Exam #: [id number] Bilateral CC and MLO view(s) were taken. Technologist: Toyin España, [employer] Machine Operator Prior study comparison: April 03, 2020, bilateral digital woman screen mammo performed at [facility] and [facility]. January 28, 2017, bilateral digital mammo screening bilat, performed at [facility]. FINDINGS: There are scattered fibroglandular densities. Screening. Digital screening (2D) mammography was performed bilaterally in the CC and MLO projections. Additionally, breast tomosynthesis (3D mammography) was performed bilaterally in the CC and MLO projections. Todays exam was compared to the prior exam/exams. By history, the patient has no complaints of a palpable breast abnormality or other significant breast complaints. The breasts are unchanged in size and shape. There are no katina-soft tissue densities or spiculated masses. There is no internal architectural distortion. Once again, stable benign appearing calcifications are seen.There are no suspicious katina-calcific clusters. Skin thickening or nipple retraction is not present. IMPRESSION: BI-RADS Category 2- Benign Findings. There is no evidence of malignant alteration of the breasts. Followup examination recommended in one year. The [place] volumetric breast density category is B, there are scattered areas of fibroglandular densities. This mammogram was read with the assistance of [employer],an FDA approved computer aided detection system for mammography. The lifetime Tyrer-Cuzick score is 9.6 % Negative x-ray reports should not delay surgical consultation if a dominant or clinically suspicious mass is present. Not all breast cancers can be identified by mammography. Therefore, we recommend that you continue to perform regular breast self-examination and physical examination and then promptly contact your physician of any concerns or changes. Adenosis and dense breasts may obscure an underlying neoplasm. Assessment: BI-RADS/ACR category 2 mammogram. Benign Findings. Recommendation Routine screening mammogram of both breasts in 1 year. Electronically Signed By: Neri Hutchison DO 06/23/21 [id number]
== END ==
LOC: M WHC 08:31
PROVIDERS: ATTEND Obstetrics & Gynecology
DX: Z12.31 Encounter for screening mammogram for malignant neoplasm of breast (principal); Z79.3 Long term (current) use of hormonal contraceptives

== ENCOUNTER → 2021-06-25 | Outpatient (CLI) | payer BC, MEDICARE ==
--- NOTE | 2021-06-26 08:59 | REPVR ---
PROCEDURE INFORMATION: Exam: MR Lumbar Spine Without Contrast Exam date and time: 06/25/2021 4:25 PM Age: 51 years old Clinical indication: Low back pain; Additional info: Disc degeneration, R/O hnp vs stenosis TECHNIQUE: Imaging protocol: Multiplanar magnetic resonance images of the lumbar spine without intravenous contrast. COMPARISON: MRI-Spine,Thoracic without con 05/26/2021 10:27 AM FINDINGS: Vertebrae: Evaluation of the marrow demonstrates no evidence of acute fracture line, high-grade compression deformity, worrisome malalignment, or marrow edema. Benign marrow signal on the T1 weighted images. Moderate posterior element hypertrophic changes at multiple levels. Spinal epidural space: No evidence of arachnoiditis or epidural fluid. Spinal cord: The conus terminates at L1-L2 without abnormal cord signal. L1-L2: No significant disc disease. No significant spinal canal stenosis. No neural foraminal stenosis. L2-L3: No significant disc disease. No significant spinal canal stenosis. No neural foraminal stenosis. L3-L4: No significant disc disease. No significant spinal canal stenosis. No neural foraminal stenosis. L4-L5: Minimal bulging of the disc at L4-L5 without significant mass effect. L5-S1: Minimal bulging disc at L5-S1 without significant central or foraminal encroachment. Sacrum/coccyx: Symmetric SI joints. Soft tissues: Mild paraspinal muscular atrophy without paraspinal mass or hematoma. Disc desiccation at L3-L4 and L4-L5 with maintenance of disc spaces. Reproductive: T2 hyperintensity in the left hemipelvis may be adnexal cyst. Ultrasound follow-up can be utilized. IMPRESSION: No significant intraspinal pathology. Mild degenerative changes. Electronically signed by: Mahad Lindsey On 06/26/2021 08:59:17 AM
== END ==
LOC: M PLAIMG 15:26
PROVIDERS: ATTEND Physical Medicine & Rehabilitation
DX: M51.26 Other intervertebral disc displacement, lumbar region (principal)

== ENCOUNTER → 2021-12-09 | Outpatient (REF) | payer BC, MEDICARE | LOC: M LAB REF 16:57 | PROVIDERS: ATTEND Nurse Practitioner Adult Health | DX: Z98.84 Bariatric surgery status (principal) ==

== ENCOUNTER → 2022-10-28 | Outpatient (REF) | payer BC, MEDICARE ==
[~2022-10-28] MED LIST changes: -TRIA37.53 PO; +TRIA37.577 PO
== END ==
LOC: M SFHCWAGY 18:13
PROVIDERS: ATTEND Nurse Practitioner Family
DX: Z12.4 Encounter for screening for malignant neoplasm of cervix (principal); R87.610 Atypical squamous cells of undetermined significance on cytologic smear of cervix (ASC-US)
CPT/HCPCS: 87624; G0123

== ENCOUNTER → 2022-10-28 | Outpatient (CLI) | payer BC, MEDICARE | LOC: M WHC 08:59 | PROVIDERS: ATTEND Nurse Practitioner Family | DX: Z12.31 Encounter for screening mammogram for malignant neoplasm of breast (principal) ==

== ENCOUNTER 2023-02-26 16:30 | Emergency (ER) | payer BC, MEDICARE ==
[~2023-02-26] VITALS: Ht 167.6 cm; Wt 147.8 kg
[2023-02-26] MEDS ORDERED: TRAM50TA2 PO (16:52)
[2023-02-26 20:22] LABS: BASO # 0.1 10^3/uL (0.0-0.2); BASO % 0.3 % (0.0-1.0); EOS % 0.1 % (0.0-3.0); HEMATOCRIT 43.3 % (36.0-47.0); HEMOGLOBIN 14.2 g/dl (12.0-15.5); LYMPH # 4.1 10^3/uL (1.5-5.0); LYMPH % 22.2 % (24.0-44.0); MEAN CORPUSCULAR HGB CONC 32.8 g/dl (32.0-36.5); MEAN CORPUSCULAR VOLUME 85.4 fl (80.0-96.0); MONO # 0.8 10^3/uL (0.0-0.8); MONO % 4.3 % (2.0-8.0); NEUTROPHILS # 13.3 10^3/uL (1.5-8.5); NEUTROPHILS % 72.2 % (36.0-66.0); PLATELET COUNT, AUTOMATED 390 10^3/uL (150-450); RED BLOOD COUNT 5.07 10^6/uL (4.00-5.40); WHITE BLOOD COUNT 18.4 10^3/uL (4.0-10.0)
[2023-02-26 20:34] LABS: INR 1.01; PROTHROMBIN TIME 13.5 SECONDS (12.5-14.5)
[2023-02-26 20:35] LABS: PARTIAL THROMBOPLASTIN TIME 29.2 SECONDS (24.8-34.2)
[2023-02-26 20:36] LABS: ERYTHROCYTE SEDIMENTATION RATE 55 mm/hr (0-30)
[2023-02-26 20:48] LABS: ALBUMIN 3.8 G/DL (3.2-5.2); ALKALINE PHOSPHATASE 94 U/L (46-116); ALT/SGPT 12 U/L (7.0-40); AST/SGOT < 8 U/L (<34); BILIRUBIN,DIRECT 0.2 MG/DL (<0.4); BILIRUBIN,TOTAL 0.7 MG/DL (0.3-1.2); TOTAL PROTEIN 7.3 G/DL (5.7-8.2)
[2023-02-26] MEDS ORDERED: NS 1,000 ML IV ONE (20:50)
[2023-02-26] MEDS ORDERED: TRIA1CR80 TOP (21:46)
[2023-02-26] MEDS ORDERED: TACR0.1O4 TOP (21:46)
[2023-02-26 22:04] VITALS: BP 194/97; TEMP 98.3; O2SAT 99
[2023-02-26 22:15] LABS: RHEUMATOID FACTOR QUANT < 3.5 IU/ML (<14)
== END 2023-02-26 22:11 | disposition home or self-care (01) ==
LOC: M ED 16:30
DX: L53.9 Erythematous condition, unspecified (principal); I10 Essential (primary) hypertension; E78.5 Hyperlipidemia, unspecified; D64.9 Anemia, unspecified; E03.9 Hypothyroidism, unspecified; Z98.84 Bariatric surgery status; Z91.018 Allergy to other foods; Z79.899 Other long term (current) drug therapy

== ENCOUNTER → 2023-03-04 | Outpatient (REF) | payer BC, MEDICARE ==
[~2023-03-04] MED LIST changes: +TACR0.1O4 TOP; +TRAM50TA2 PO; +TRIA1CR80 TOP
[2023-03-04 14:27] LABS: RHEUMATOID FACTOR QUANT < 3.5 IU/ML (<14); URIC ACID 4.3 MG/DL (3.1-7.8)
[2023-03-06 00:07] LABS: ANA (HEP2) Positive (.); CYCLIC CITRULLINATED PEPTIDE 7 units (0-19)
== END ==
LOC: M LAB REF 12:28
PROVIDERS: ATTEND Nurse Practitioner Family
DX: M25.50 Pain in unspecified joint (principal)

== ENCOUNTER → 2023-06-04 | Outpatient (CLI) | payer BC, MEDICARE | LOC: M PLAIMG 09:18 | PROVIDERS: ATTEND Physician Assistant | DX: M54.12 Radiculopathy, cervical region (principal); M25.511 Pain in right shoulder ==

== ENCOUNTER → 2023-09-21 | Outpatient (REF) | payer BC, MEDICARE | LOC: M LAB REF 13:40 | PROVIDERS: ATTEND Nurse Practitioner Adult Health | DX: K51.919 Ulcerative colitis, unspecified with unspecified complications (principal) ==

== ENCOUNTER 2023-10-13 18:14 | Observation (INO) | payer BC, MEDICARE ==
[~2023-10-13] VITALS: Ht 165.1 cm; Wt 142.0 kg
[~2023-10-13 18:14] MED LIST changes: -BUDE3CAP PO; -BUSP15TA47 PO; -CIPR750T2 PO; -GASTROGRAFIN SOLUTION 30ML ONE; -ISOVUE-370 76% 100ML VIAL ONE; -LEVO125T4 PO; -METR-265 PO; -OXYC1TAB23 PO; -PEDI18TA3 PO; -PROBCAP14 PO; -TIZA4CAP PO; -VITA500030 PO; -[UNRECOGNIZED DRUG - CODE] PO
[2023-10-13] MEDS ORDERED: BUDE3CAP PO (18:26)
[2023-10-13 19:31] LABS: BASO % 0.3 % (0.0-1.0); EOS # 0.1 10^3/uL (0.0-0.5); EOS % 0.7 % (0.0-3.0); HEMATOCRIT 43.4 % (36.0-47.0); HEMOGLOBIN 14.3 g/dl (12.0-15.5); LYMPH # 2.5 10^3/uL (1.5-5.0); LYMPH % 18.2 % (24.0-44.0); MEAN CORPUSCULAR HEMOGLOBIN 27.9 pg (27.0-33.0); MEAN CORPUSCULAR HGB CONC 32.9 g/dl (32.0-36.5); MEAN CORPUSCULAR VOLUME 84.8 fl (80.0-96.0); MONO # 0.8 10^3/uL (0.0-0.8); MONO % 5.5 % (2.0-8.0); NEUTROPHILS # 10.3 10^3/uL (1.5-8.5); NEUTROPHILS % 74.7 % (36.0-66.0); PLATELET COUNT, AUTOMATED 327 10^3/uL (150-450); RED BLOOD COUNT 5.12 10^6/uL (4.00-5.40); WHITE BLOOD COUNT 13.8 10^3/uL (4.0-10.0)
[2023-10-13] MEDS: ACETAMINOPHEN *IV* 1,000 MG in IV 1 EA IV ONE (19:31)
[2023-10-13 19:54] LABS: LIPASE 42 U/L (12-53)
[2023-10-13 19:56] LABS: ALBUMIN 3.7 G/DL (3.2-5.2); ALKALINE PHOSPHATASE 100 U/L (46-116); ALT/SGPT 26 U/L (7.0-40); AST/SGOT 24 U/L (<34); BILIRUBIN,DIRECT 0.2 MG/DL (<0.4); BILIRUBIN,TOTAL 0.6 MG/DL (0.3-1.2); BLOOD UREA NITROGEN 12 MG/DL (9-23); CALCIUM LEVEL 9.3 MG/DL (8.5-10.1); CARBON DIOXIDE LEVEL 27 MMOL/L (20-31); CHLORIDE LEVEL 106 MMOL/L (98-107); CREATININE FOR GFR 0.67 MG/DL (0.55-1.30); GLOMERULAR FILTRATION RATE > 60.0 (>51); GLUCOSE, FASTING 82 MG/DL (60-100); POTASSIUM SERUM 4.1 MMOL/L (3.5-5.1); SODIUM LEVEL 139 MMOL/L (136-145); TOTAL PROTEIN 7.3 G/DL (5.7-8.2)
[2023-10-13] MEDS: PIPERACILLIN/TAZOBACTAM SOD 4.5 GM in D5W MINI-BAG PLUS 50 ML IV ONE (20:10)
[2023-10-13] MEDS ORDERED: LEVO125T4 PO (20:26)
[2023-10-13] MEDS ORDERED: BUSP15TA47 PO (20:26)
[2023-10-13] MEDS ORDERED: [UNRECOGNIZED DRUG - CODE] PO (20:37)
[2023-10-13] MEDS ORDERED: TIZA4CAP PO (20:37)
[2023-10-13] MEDS ORDERED: VITA500030 PO (20:44)
[2023-10-13] MEDS ORDERED: PEDI18TA3 PO (20:44)
[2023-10-13] MEDS: HYDROMORPHONE HCL 0.5 MG/ 0.5 ML SYRINGE IV ONE (20:48)
[2023-10-13] MEDS ORDERED: HOME MED LIST COMPLETE! XX SCH ×2 (21:05→23:05)
[2023-10-13 21:13] LABS: RSV AMPLIFICATION NEGATIVE (NEGATIVE)
[2023-10-13] MEDS ORDERED: ONDANSETRON 4MG 2ML VIAL IV PRN (22:55)
[2023-10-13] MEDS: LR 1,000 ML IV SCH (23:48)
[2023-10-13] MEDS: busPIRone 5 MG TAB PO SCH (23:49)
[2023-10-13 23:50] VITALS: BP 145/88; TEMP 97.9; O2SAT 97
[2023-10-14] VITALS (10 sets, daily range): BP systolic 121–132; BP diastolic 71–78; TEMP 96.8–98.1; O2SAT 88–97
[2023-10-14] MEDS: HYDROMORPHONE HCL 0.5 MG/ 0.5 ML SYRINGE IV PRN ×2 (00:46→13:57)
[2023-10-14] MEDS: PIPERACILLIN/TAZOBACTAM SOD 3.375 GM in D5W MINI-BAG PLUS 50 ML IV SCH (01:00)
[2023-10-14] MEDS: LEVOTHYROXINE 125MCG TABLET (0.125MG) PO SCH (03:23)
[2023-10-14] MEDS: LEVOTHYROXINE 100MCG TABLET (0.1MG) PO SCH (03:23)
[2023-10-14 08:06] LABS: BASO % 0.5 % (0.0-1.0); EOS # 0.1 10^3/uL (0.0-0.5); EOS % 1.6 % (0.0-3.0); HEMATOCRIT 37.7 % (36.0-47.0); HEMOGLOBIN 12.4 g/dl (12.0-15.5); LYMPH # 2.7 10^3/uL (1.5-5.0); LYMPH % 33.8 % (24.0-44.0); MEAN CORPUSCULAR HGB CONC 32.9 g/dl (32.0-36.5); MEAN CORPUSCULAR VOLUME 85.1 fl (80.0-96.0); MONO # 0.6 10^3/uL (0.0-0.8); MONO % 7.4 % (2.0-8.0); NEUTROPHILS # 4.5 10^3/uL (1.5-8.5); NEUTROPHILS % 56.1 % (36.0-66.0); PLATELET COUNT, AUTOMATED 255 10^3/uL (150-450); RED BLOOD COUNT 4.43 10^6/uL (4.00-5.40)
[2023-10-14] MEDS: SERTRALINE 100 MG TAB PO SCH (08:19)
[2023-10-14 08:28] LABS: C REACTIVE PROTEIN QUANTITATIV 1.8 MG/DL (<1.0)
[2023-10-14 08:29] LABS: BLOOD UREA NITROGEN 13 MG/DL (9-23); CARBON DIOXIDE LEVEL 31 MMOL/L (20-31); CHLORIDE LEVEL 107 MMOL/L (98-107); CREATININE FOR GFR 0.69 MG/DL (0.55-1.30); GLOMERULAR FILTRATION RATE > 60.0 (>51); GLUCOSE, FASTING 86 MG/DL (60-100); MAGNESIUM LEVEL 1.8 MG/DL (1.8-2.4); POTASSIUM SERUM 4.1 MMOL/L (3.5-5.1); SODIUM LEVEL 142 MMOL/L (136-145)
[2023-10-14 08:40] LABS: PROCALCITONIN <0.04 ng/ml
[2023-10-14] MEDS ORDERED: DYAZIDE 37.5/25 CAP (TRIAM/HCTZ) PO SCH (09:00)
[2023-10-14] MEDS: BUDESONIDE EC 3MG CAP (ENTOCORT EC) PO SCH (10:09)
[2023-10-14] MEDS ORDERED: MIDAZOLAM INJ 2MG/2ML VIAL As Ordered ONE (10:43)
[2023-10-14] MEDS ORDERED: fentaNYL 250 MCG/5 ML INJECTION As Ordered ONE (10:43)
[2023-10-14] MEDS ORDERED: propofoL 200 MG/20 ML VIAL As Ordered ONE (10:43)
[2023-10-14] MEDS ORDERED: LIDOCAINE 2% 100MG/5ML SDV (FOR ANES.) As Ordered ONE (10:45)
[2023-10-14] MEDS ORDERED: ROCURONIUM BROMIDE 50MG/5ML VIAL As Ordered ONE (10:45)
[2023-10-14] MEDS ORDERED: ONDANSETRON 4MG 2ML VIAL As Ordered ONE (10:47)
[2023-10-14] MEDS ORDERED: METOCLOPRAMIDE INJ 10MG/2ML VIAL As Ordered ONE (10:47)
[2023-10-14] MEDS ORDERED: ACETAMINOPHEN 1000MG 100ML IV BAG As Ordered ONE (12:48)
[2023-10-14] MEDS: ZOSYN 3.375GM VIAL As Ordered ONE (13:10)
[2023-10-14] MEDS ORDERED: SUGAMMADEX SODIUM 500 MG/5 ML VIAL (BRIDION) As Ordered ONE (13:22)
[2023-10-14] MEDS ORDERED: KETOROLAC 60MG 2ML VIAL As Ordered ONE (13:23)
[2023-10-14] MEDS ORDERED: fentaNYL 100 MCG/2 ML INJECTION IV PRN (13:35)
[2023-10-14] MEDS ORDERED: ONDANSETRON 4MG 2ML VIAL IV PRN (13:35)
[2023-10-14] MEDS ORDERED: PIPERACILLIN/TAZOBACTAM SOD 3.375 GM in D5W MINI-BAG PLUS 50 ML IV SCH (13:55)
[2023-10-14] MEDS: oxyCODONE 5MG TAB PO PRN (13:56)
[2023-10-14] MEDS: LR 1,000 ML IV SCH (15:09)
[2023-10-14 16:09] LABS: CA19-9 TUMOR MARKER,CARBOHYDRA 11.5 U/ML (<35.0)
[2023-10-14] MEDS: GOLYTELY SOLN 4000 ML BTL PO ONE (18:28)
[2023-10-14] MEDS: ENOXAPARIN 60MG/0.6ML SYRINGE (J1650 PER 10MG) SC SCH (20:49)
[2023-10-15] VITALS: BP 122/72; TEMP 97; O2SAT 97
[2023-10-15 02:00] VITALS: BP 121/73; TEMP 98.1; O2SAT 97
[2023-10-15 04:30] VITALS: BP 124/72; TEMP 97.5; O2SAT 97
[2023-10-15 07:09] LABS: BASO % 0.1 % (0.0-1.0); HEMATOCRIT 37.5 % (36.0-47.0); HEMOGLOBIN 12.4 g/dl (12.0-15.5); LYMPH # 1.5 10^3/uL (1.5-5.0); LYMPH % 14.3 % (24.0-44.0); MEAN CORPUSCULAR HGB CONC 33.1 g/dl (32.0-36.5); MEAN CORPUSCULAR VOLUME 84.7 fl (80.0-96.0); MONO # 0.6 10^3/uL (0.0-0.8); MONO % 5.8 % (2.0-8.0); NEUTROPHILS # 8.2 10^3/uL (1.5-8.5); NEUTROPHILS % 79.3 % (36.0-66.0); PLATELET COUNT, AUTOMATED 278 10^3/uL (150-450); RED BLOOD COUNT 4.43 10^6/uL (4.00-5.40); WHITE BLOOD COUNT 10.3 10^3/uL (4.0-10.0)
[2023-10-15 07:30] LABS: BLOOD UREA NITROGEN 12 MG/DL (9-23); CALCIUM LEVEL 8.6 MG/DL (8.5-10.1); CARBON DIOXIDE LEVEL 29 MMOL/L (20-31); CHLORIDE LEVEL 105 MMOL/L (98-107); CREATININE FOR GFR 0.63 MG/DL (0.55-1.30); GLOMERULAR FILTRATION RATE > 60.0 (>51); GLUCOSE, FASTING 102 MG/DL (60-100); MAGNESIUM LEVEL 1.8 MG/DL (1.8-2.4); POTASSIUM SERUM 3.9 MMOL/L (3.5-5.1); SODIUM LEVEL 140 MMOL/L (136-145)
[2023-10-15 08:30] VITALS: BP 136/78; TEMP 96.8; O2SAT 96
[2023-10-15] MEDS ORDERED: ENOXAPARIN 60MG/0.6ML SYRINGE (J1650 PER 10MG) SC SCH (09:00)
[2023-10-15 12:30] VITALS: BP 157/78; TEMP 97.2; O2SAT 98
[2023-10-15] MEDS ORDERED: PROBCAP14 PO (16:24)
[2023-10-15] MEDS ORDERED: CIPR750T2 PO (16:24)
[2023-10-15] MEDS ORDERED: METR-265 PO (16:24)
[2023-10-15 16:45] VITALS: BP 151/88; TEMP 97; O2SAT 97
[2023-10-15] MEDS ORDERED: OXYC1TAB23 PO (17:33)
== END 2023-10-15 18:44 | disposition home or self-care (01) ==
LOC: M ED 18:14 → INTOOBSV 23:06 → M ED INP 23:06 → M MSPAV 23:35
PROVIDERS: ADMIT Internal Medicine; ATTEND Internal Medicine
DX: K35.80 Unspecified acute appendicitis (principal); K38.8 Other specified diseases of appendix; R93.3 Abnormal findings on diagnostic imaging of other parts of digestive tract; K52.9 Noninfective gastroenteritis and colitis, unspecified; K92.2 Gastrointestinal hemorrhage, unspecified; K63.89 Other specified diseases of intestine; D12.2 Benign neoplasm of ascending colon; K64.8 Other hemorrhoids; R10.31 Right lower quadrant pain; E03.9 Hypothyroidism, unspecified; F41.9 Anxiety disorder, unspecified; E66.01 Morbid (severe) obesity due to excess calories; Z68.43 Body mass index [BMI] 50.0-59.9, adult; I10 Essential (primary) hypertension; K21.9 Gastro-esophageal reflux disease without esophagitis; E78.5 Hyperlipidemia, unspecified; D64.9 Anemia, unspecified; Z98.84 Bariatric surgery status; Z90.49 Acquired absence of other specified parts of digestive tract; Z91.018 Allergy to other foods; Z79.899 Other long term (current) drug therapy; Z79.890 Hormone replacement therapy
CPT/HCPCS: 36415; 45380; 49320; 80048; 80076; 82378; 83690; 83735; 84145; 85025; 85652; 86140; 86301; 86304; 87631; 88305; 96365; 96366; 96372; 96375; 96376; 99284; J0131; J0665; J1100; J1170; J1650; J1885; J2250; J2405; J2543; J2765; J3010; S2900

== ENCOUNTER → 2023-10-13 | Outpatient (CLI) | payer BC, MEDICARE ==
[~2023-10-13] MED LIST changes: +BUDE3CAP PO; +BUSP15TA47 PO; +CIPR750T2 PO; +GASTROGRAFIN SOLUTION 30ML ONE; +ISOVUE-370 76% 100ML VIAL ONE; +LEVO125T4 PO; +METR-265 PO; +OXYC1TAB23 PO; +PEDI18TA3 PO; +PROBCAP14 PO; +TIZA4CAP PO; +VITA500030 PO; +[UNRECOGNIZED DRUG - CODE] PO
== END ==
LOC: M PLAIMG 11:38
PROVIDERS: ATTEND Nurse Practitioner Adult Health
DX: K52.3 Indeterminate colitis (principal)
CPT/HCPCS: 74177; Q9963; Q9967

== ENCOUNTER 2023-12-16 06:10 | Inpatient (IN) | payer BC, MEDICARE ==
[2023-12-16] VITALS (8 sets, daily range): BP systolic 111–117; BP diastolic 56–70; TEMP 97–97.7; O2SAT 92–96
[~2023-12-16] VITALS: Ht 165.1 cm; Wt 140.6 kg
[~2023-12-16 06:10] MED LIST changes: +BUDE3CAP PO; +BUSP15TA47 PO; +CIPR750T2 PO; +D 50CAP2 PO; +LEVO125T4 PO; +METR-265 PO; +OXYC1TAB23 PO; +PEDI18TA3 PO; +PROBCAP14 PO; +SYNT125T PO; +TIZA4CAP PO; +VITA500030 PO; +[UNRECOGNIZED DRUG - CODE] PO
[2023-12-16] MEDS: LR 1,000 ML IV SCH ×2 (06:20→12:13)
[2023-12-16] MEDS ORDERED: propofoL 200 MG/20 ML VIAL As Ordered ONE (07:14)
[2023-12-16] MEDS ORDERED: ONDANSETRON 4MG 2ML VIAL As Ordered ONE (07:14)
[2023-12-16] MEDS ORDERED: ROCURONIUM BROMIDE 50MG/5ML VIAL As Ordered ONE (07:14)
[2023-12-16] MEDS ORDERED: LIDOCAINE 2% 100MG/5ML SDV (FOR ANES.) As Ordered ONE (07:14)
[2023-12-16] MEDS ORDERED: fentaNYL 100 MCG/2 ML INJECTION As Ordered ONE (07:15)
[2023-12-16] MEDS ORDERED: MIDAZOLAM INJ 2MG/2ML VIAL As Ordered ONE (07:16)
[2023-12-16] MEDS ORDERED: KETOROLAC 60MG 2ML VIAL As Ordered ONE (07:21)
[2023-12-16] MEDS ORDERED: ACETAMINOPHEN 1000MG 100ML IV BAG As Ordered ONE (07:21)
[2023-12-16] MEDS ORDERED: SUGAMMADEX SODIUM 500 MG/5 ML VIAL (BRIDION) As Ordered ONE (07:21)
[2023-12-16] MEDS: metroNIDAZOLE 500 MG in IV 1 EA IV ONE (07:35)
[2023-12-16] MEDS: ceFAZolin SOD 1 GM in D5W MINI-BAG PLUS 50 ML IV ONE (07:45)
[2023-12-16] MEDS: ceFAZolin SOD 2 GM in IV 1 EA IV ONE (07:45)
[2023-12-16] MEDS: HEPARIN SOD (PORCINE) 5000UNITS/ML 1ML VIAL/SYRINGE SQ ONE (07:51)
[2023-12-16] MEDS ORDERED: LABETALOL 100MG/20ML VIAL As Ordered ONE (08:31)
[2023-12-16] MEDS ORDERED: HYDROmorphone HCL 2MG/ML 1ML VIAL As Ordered ONE (08:46)
[2023-12-16] MEDS ORDERED: MEPERIDINE 25 MG/ML 1ML VIAL IV PRN (11:45)
[2023-12-16] MEDS ORDERED: ONDANSETRON 4MG 2ML VIAL IV PRN (11:45)
[2023-12-16] MEDS ORDERED: HYDROMORPHONE HCL 0.5 MG/ 0.5 ML SYRINGE IV PRN (11:45)
[2023-12-16] MEDS ORDERED: diphenhydrAMINE 50MG/ML VIAL IV PRN (11:45)
[2023-12-16] MEDS ORDERED: oxyCODONE 5MG TAB PO PRN (11:55)
[2023-12-16] MEDS ORDERED: ONDANSETRON 4MG TAB PO PRN (11:55)
[2023-12-16] MEDS: METOCLOPRAMIDE INJ 10MG/2ML VIAL IV PRN (12:13)
[2023-12-16] MEDS: fentaNYL 100 MCG/2 ML INJECTION IV PRN (12:24)
[2023-12-16] MEDS: oxyCODONE 5MG TAB PO PRN (12:32)
[2023-12-16] MEDS ORDERED: dexmedeTOMIDine (4MCG/ML)200MCG/50ML BTL (PRECEDEX) As Ordered ONE (13:09)
[2023-12-16] MEDS: ACETAMINOPHEN *IV* 1,000 MG in IV 1 EA IV SCH (13:54)
[2023-12-16] MEDS: KCL 20MEQ IN D5/0.45NS 1000ML 1,000 ML IV SCH (13:54)
[2023-12-16] MEDS: GABAPENTIN 300 MG CAP PO SCH (13:54)
[2023-12-16] MEDS ORDERED: PROBCAP14 PO (14:01)
[2023-12-16] MEDS ORDERED: FLINCHW2 PO (14:01)
[2023-12-16] MEDS ORDERED: HOME MED LIST COMPLETE! XX SCH (14:10)
[2023-12-16] MEDS: KETOROLAC 30 MG/ML 1ML VIAL IV SCH (16:28)
[2023-12-16] MEDS: traMADol 50 MG TAB PO PRN (19:42)
[2023-12-16] MEDS: ALVIMOPAN 12 MG CAPSULE (ENTEREG) PO SCH (20:41)
[2023-12-17 01:39] VITALS: BP 113/66; TEMP 97.1; O2SAT 91
[2023-12-17 05:25] VITALS: BP 118/76; TEMP 97.3; O2SAT 94
[2023-12-17] MEDS: PANTOPRAZOLE 40MG TAB (PROTONIX) PO SCH (08:21)
[2023-12-17] MEDS: ENOXAPARIN 40MG/0.4ML SYRINGE (J1650 PER 10MG) SC SCH (08:21)
[2023-12-17 10:07] LABS: HEMOGLOBIN 11.9 g/dl (12.0-15.5); MEAN CORPUSCULAR HEMOGLOBIN 27.9 pg (27.0-33.0); MEAN CORPUSCULAR HGB CONC 33.1 g/dl (32.0-36.5); MEAN CORPUSCULAR VOLUME 84.3 fl (80.0-96.0); PLATELET COUNT, AUTOMATED 254 10^3/uL (150-450); RED BLOOD COUNT 4.27 10^6/uL (4.00-5.40); WHITE BLOOD COUNT 10.5 10^3/uL (4.0-10.0)
[2023-12-17 10:34] LABS: ALKALINE PHOSPHATASE 77 U/L (46-116); ALT/SGPT 20 U/L (7.0-40); AST/SGOT 18 U/L (<34); BILIRUBIN,TOTAL 0.9 MG/DL (0.3-1.2); BLOOD UREA NITROGEN 15 MG/DL (9-23); CALCIUM LEVEL 8.9 MG/DL (8.5-10.1); CARBON DIOXIDE LEVEL 26 MMOL/L (20-31); CHLORIDE LEVEL 104 MMOL/L (98-107); GLOMERULAR FILTRATION RATE > 60.0 (>51); GLUCOSE, FASTING 101 MG/DL (60-100); POTASSIUM SERUM 3.5 MMOL/L (3.5-5.1); SODIUM LEVEL 139 MMOL/L (136-145); TOTAL PROTEIN 5.9 G/DL (5.7-8.2)
[2023-12-17 13:11] VITALS: BP 121/75; TEMP 97.3; O2SAT 94
[2023-12-17] MEDS: oxyCODONE 5MG TAB PO PRN (13:26)
[2023-12-17 20:36] VITALS: BP 120/76; TEMP 97.2; O2SAT 97
[2023-12-18 02:00] VITALS: BP 151/84; TEMP 97; O2SAT 96
[2023-12-18 05:17] VITALS: BP 131/78; TEMP 96.8; O2SAT 94
[2023-12-18 07:16] LABS: HEMATOCRIT 34.1 % (36.0-47.0); HEMOGLOBIN 11.4 g/dl (12.0-15.5); MEAN CORPUSCULAR HEMOGLOBIN 28.3 pg (27.0-33.0); MEAN CORPUSCULAR HGB CONC 33.4 g/dl (32.0-36.5); MEAN CORPUSCULAR VOLUME 84.6 fl (80.0-96.0); PLATELET COUNT, AUTOMATED 237 10^3/uL (150-450); RED BLOOD COUNT 4.03 10^6/uL (4.00-5.40); WHITE BLOOD COUNT 9.7 10^3/uL (4.0-10.0)
[2023-12-18 07:22] LABS: BLOOD UREA NITROGEN 13 MG/DL (9-23); CALCIUM LEVEL 8.7 MG/DL (8.5-10.1); CARBON DIOXIDE LEVEL 26 MMOL/L (20-31); CHLORIDE LEVEL 107 MMOL/L (98-107); CREATININE FOR GFR 0.72 MG/DL (0.55-1.30); GLOMERULAR FILTRATION RATE > 60.0 (>51); GLUCOSE, FASTING 83 MG/DL (60-100); POTASSIUM SERUM 3.9 MMOL/L (3.5-5.1); SODIUM LEVEL 139 MMOL/L (136-145)
[2023-12-18 10:11] VITALS: BP 133/78; TEMP 97.3; O2SAT 94
[2023-12-18] MEDS ORDERED: OXYC1TAB23 PO (12:53)
== END 2023-12-18 13:22 | disposition home or self-care (01) | DRG 221 ==
LOC: M OR 06:10 → M MS5PR 12:55
PROVIDERS: ADMIT Surgery; ATTEND Surgery
PROC: 0DBB4ZZ Excision of Ileum, Percutaneous Endoscopic Approach (ICD-10-PCS; 2023-12-16)
PROC: 8E0W4CZ Robotic Assisted Procedure of Trunk Region, Percutaneous Endoscopic Approach (ICD-10-PCS; 2023-12-16)
PROC: 0DBH4ZZ Excision of Cecum, Percutaneous Endoscopic Approach (ICD-10-PCS; principal; 2023-12-16 07:30)
DX: K36 Other appendicitis (principal); E66.9 Obesity, unspecified; K21.9 Gastro-esophageal reflux disease without esophagitis; E03.9 Hypothyroidism, unspecified; I10 Essential (primary) hypertension; F41.9 Anxiety disorder, unspecified; F32.A Depression, unspecified; G89.29 Other chronic pain; Z90.49 Acquired absence of other specified parts of digestive tract; Z79.890 Hormone replacement therapy; Z79.899 Other long term (current) drug therapy; Z91.018 Allergy to other foods

== ENCOUNTER → 2024-01-20 | Outpatient (REF) | payer BC, MEDICARE ==
[~2024-01-20] MED LIST changes: +FLINCHW2 PO
[2024-01-20 17:21] LABS: PERCENT SATURATION 9.8 % (13.2-45.0); PHOSPHORUS LEVEL 4.3 MG/DL (2.5-4.9)
[2024-01-20 17:23] LABS: FERRITIN 59.4 NG/ML (7.3-270.7); TOTAL 25(OH) VITAMIN D 48.8 NG/ML (20.0-100.0)
[2024-01-20 17:24] LABS: FOLATE 14.2 NG/ML (>5.4)
== END ==
LOC: M LAB REF 16:23
PROVIDERS: ATTEND Nurse Practitioner Adult Health
DX: Z98.84 Bariatric surgery status (principal)

== ENCOUNTER → 2024-06-28 | Outpatient (CLI) | payer BC, MEDICARE | LOC: M PLAIMG 14:39 | PROVIDERS: ATTEND Physician Assistant | DX: M47.892 Other spondylosis, cervical region (principal); M48.02 Spinal stenosis, cervical region ==